=== PATIENT | male | born 1955 | race Asian ===

== ENCOUNTER 2016-09-26 19:25 | Emergency (ER) | payer OTHER ==
[2016-09-26 19:48] VITALS: BP 135/84; PULSE 102; TEMP 98.3; BMI 29.3
--- NOTE | 2016-09-26 19:48 | PDOC ---
History of Present Illness - General Chief Complaint: Injury Stated Complaint: LEFT SHOULDER PAIN Time Seen by Provider: 09/26/16 19:47 History Source: Patient Exam Limitations: No Limitations - History of Present Illness Initial Comments: 09/26/16 20:48 This is a 61-year-old male who works as a concession cashier at a store. Patient said that he slipped and fell on some water that was on the floor and landed on his left shoulder. Patient continued to work for several hours but over the next several hours his shoulder became progressively more painful and uncomfortable. So patient comes in for evaluation. Patient did not hit his head. He did not pass out and denies any other complaints or injuries. PAST MEDICAL HISTORY: no significant history PAST SURGICAL HISTORY: no significant history FAMILY HISTORY: no pertinant history SOCIAL HISTORY: Pt lives with family and is employed. MEDICATIONS: reviewed ALLERGIES: As per nursing notes Review of Systems General: No fevers or chills, no weakness, no weight loss HEENT: No change in vision. No sore throat,. No ear pain CardioVascular: No chest pain or shortness of breath Respiratory:No cough, or wheezing. Gastrointestinal: no nausea, vomitting, diarrhea or constipation, No rectal bleeding Genitourinary: No dysuria, hematuria, or frequency Musculoskeletal: Left shoulder as per history of present illness Neurologic: No headache, vertigo, dizziness or loss of consciousness Psychiatric: nor depression Skin: No rashes or easy bruising Endocrine: no increased thirst or abnormal weight change Allergic: no skin or latex allergy All other systems reviewed and normal GENERAL: The patient is awake, alert, and fully oriented, in no acute distress. HEAD: Normal with no signs of trauma. EYES: Pupils equal, round and reactive to light, extraocular movements intact, sclera anicteric, conjunctiva clear. EXTREMITIES: Left shoulder: There is decreased range of motion of the shoulder secondary to pain and discomfort. There is a small amount of bruising and the swelling over the lateral part of the shoulder. There is no bony tenderness or crepitus. There is no deformity. Neurovascular distal is intact. NEUROLOGICAL: Normal speech, normal gait. PSYCH: Normal mood, normal affect. SKIN: Warm, Dry, normal turgor, no rashes or lesions noted. X-ray no acute fracture or dislocation. Assessment and plan: This is a 61-year-old male with left shoulder pain post fall onto the area. X-rays are negative for any acute pathology. Patient given Toradol here in the emergency room and told to continue to take ibuprofen 600 mg 3 times a day as needed for the pain. Patient also given referral to Dr. Nuñez for follow-up. Past History - Past Medical History Allergies/Adverse Reactions: Allergies Allergy/AdvReac Type Severity Reaction Status Date / Time No Known Allergies Allergy Verified 12/06/12 10:48 Home Medications: Ambulatory Orders Amlodipine Bes/Olmesartan Med [Amlodipine-Olmesartan 5-20 mg] 1 each PO DAILY HTN: Yes - Psycho/Social/Smoking Cessation Hx Anxiety: Yes Suicidal Ideation: No Smoking Status: No Smoking History: Never smoked Have you smoked in the past 12 months: No Number of Cigarettes Smoked Daily: 0 Hx Alcohol Use: No Drug/Substance Use Hx: No Substance Use Type: None Hx Substance Use Treatment: No *Physical Exam - Vital Signs Last Vital Signs Temp Pulse Resp BP Pulse Ox 98.3 F 102 H 16 135/84 98 09/26/16 19:32 09/26/16 19:32 09/26/16 19:32 09/26/16 19:32 09/26/16 19:32 *DC/Admit/Observation/Transfer Diagnosis at time of Disposition: Sprain of left shoulder Qualifiers: Shoulder sprain type: unspecified sprain - Discharge Dispostion Disposition: HOME Condition at time of disposition: Good - Patient Instructions Additional Instructions: Take ibuprofen 3 tablets 3 times a day with food don't take on an empty stomach for the pain. Ice to the area 20 minutes at a time 3-4 times a day for the next 8 hours. Follow-up with Dr. Nuñez if not improved in 3-[address] Nuñez's phone number is [phone] he is an orthopedist. Return to the emergency department immediately with ANY new, persistent or worsening symptoms. Continue any medications as previously prescribed by your physician. You should follow up with your primary doctor as soon as possible regarding today's emergency department visit. . Please make sure your doctor reviews the results of your emergency evaluation. Thank you for coming to the Emergency Department today for your care. It was a pleasure to see you today. Please note that your evaluation is INCOMPLETE until you follow-up with your doctor. - Post Discharge Activity Work/School Note: Back to Work
[2016-09-26] MEDS ORDERED: KETOROLAC TROMETHAMINE 60 MG/2 ML VIAL IM ONE (20:23)
[2016-09-26] MEDS ORDERED: KETOROLAC TROMETHAMINE 60 MG/2 ML VIAL ONE (20:24)
== END 2016-09-26 21:00 | disposition home or self-care (01) ==
LOC: FER 19:25
PROC: 3E0233Z Introduction of Anti-inflammatory into Muscle, Percutaneous Approach (ICD-10-PCS; principal; 2016-09-26)
DX: S43.402A Unspecified sprain of left shoulder joint, initial encounter (principal); W01.0XXA Fall on same level from slipping, tripping and stumbling without subsequent striking against object, initial encounter; Y93.89 Activity, other specified; Y92.89 Other specified places as the place of occurrence of the external cause; Y99.0 Civilian activity done for income or pay; I10 Essential (primary) hypertension
CPT/HCPCS: 73030-TC-LT; 99282-25

== ENCOUNTER 2016-09-28 11:33 | Emergency (ER) | payer OTHER ==
[2016-09-28 11:41] VITALS: BP 150/86; PULSE 95; TEMP 98; BMI 29.3
[2016-09-28] MEDS ORDERED: KETOROLAC TROMETHAMINE 30 MG/1 ML VIAL IM ONE (12:03)
[2016-09-28] MEDS ORDERED: KETOROLAC TROMETHAMINE 30 MG/1 ML VIAL ONE (12:08)
--- NOTE | 2016-09-28 12:10 | PDOC ---
*Physical Exam - Vital Signs Last Vital Signs Temp Pulse Resp BP Pulse Ox 98.0 F 95 H 18 150/86 99 09/28/16 11:36 09/28/16 11:36 09/28/16 11:36 09/28/16 11:36 09/28/16 11:36 - Physical Exam Comments: 09/28/16 12:05 seen 2 days ago At Hospital post fall onto left shoulder at work last week with continued painand difficulty moving shoulder General Appearance: Yes: Appropriately Dressed Neck: positive: Supple. negative: Tender, Rigid, Lymphadenopathy (R), Lymphadenopathy (L) Respiratory/Chest: positive: Lungs Clear Progress Note - Progress Note Progress Note: pt has continued limited ROM of shoulder; FROM neck, elbow and wrist; N/V intact Medical Decision Making - Medical Decision Making 09/28/16 12:08 pt did not note orthopedist referral on previous [facility] visit disch; pt will call on Friday for appt with Dr Nuñez; sling given for occasioanl use; Toradol given in ED now *DC/Admit/Observation/Transfer Diagnosis at time of Disposition: Sprain of left shoulder Qualifiers: Encounter type: sequela Shoulder sprain type: unspecified sprain Qualified Code (s): S43.402S - Unspecified sprain of left shoulder joint, sequela - Discharge Dispostion Disposition: HOME Condition at time of disposition: Stable Admit: No - Referrals Referrals: Sylvester Mooney MD [Primary Care Provider] - Oren Nuñez MD [Staff Physician] - - Patient Instructions Additional Instructions: Please see Dr Nuñez in 2-3 days in office; use sling occasionally as needed - Post Discharge Activity Work/School Note: Back to Work
== END 2016-09-28 12:23 | disposition home or self-care (01) ==
LOC: JER 11:33
PROC: 3E0233Z Introduction of Anti-inflammatory into Muscle, Percutaneous Approach (ICD-10-PCS; principal; 2016-09-28)
DX: S43.402D Unspecified sprain of left shoulder joint, subsequent encounter (principal); W19.XXXD Unspecified fall, subsequent encounter; Y92.512 Supermarket, store or market as the place of occurrence of the external cause; Y99.0 Civilian activity done for income or pay
CPT/HCPCS: 99281-25

== ENCOUNTER 2016-10-30 09:37 | Day surgery (SDC) | payer OTHER ==
[2016-10-28 12:31] VITALS: BMI 29.7
[2016-10-30] MEDS ORDERED: MIDAZOLAM HCL 2 MG/2 ML SINGLE DOSE VIAL ONE (10:42)
[2016-10-30] MEDS ORDERED: ROPIVACAINE HCL 0.5% 30ML VIAL ONE (10:43)
[2016-10-30] MEDS ORDERED: DEXAMETHASONE SOD PHOSPHATE/PF 10 MG/ML SDV ONE (10:43)
[2016-10-30] MEDS ORDERED: PROPOFOL 20 ML ONE ×3 (13:35)
[2016-10-30] MEDS ORDERED: EPINEPHrine 1:1,000 1 MG/1 ML - 30ML VIAL (INJECTION) ONE (13:59)
[2016-10-30] MEDS ORDERED: LACTATED RINGERS SOLUTION 1,000 ML IV SCH (14:45)
[2016-10-30] MEDS ORDERED: ONDANSETRON 4 MG/2 ML VIAL IVPUSH PRN (14:54)
[2016-10-30] MEDS ORDERED: oxyCODONE HCL 5 MG TABLET PO PRN ×2 (14:54)
[2016-10-30] MEDS ORDERED: ONDANSETRON 4 MG/2 ML VIAL ONE (15:00)
[2016-10-30] MEDS ORDERED: ONDANSETRON 4 MG/2 ML VIAL IVPUSH ONE (15:01)
[2016-10-30 16:01] VITALS: PULSE 80; TEMP 98.2
[2016-10-30 17:43] VITALS: BP 122/65
--- NOTE | 2016-10-31 09:43 | OP ---
DATE OF OPERATION: 10/30/2016 PREOPERATIVE DIAGNOSIS: Left shoulder full-thickness rotator cuff tear. POSTOPERATIVE DIAGNOSES: 1. Left shoulder full-thickness anterior supraspinatus rotator cuff tear. 2. Left shoulder superior labral tear and proximal biceps tear. 3. Left shoulder glenohumeral joint sprain and synovitis. 4. Left shoulder subacromial impingement syndrome and severe bursitis. OPERATIVE PROCEDURES: 1. Left shoulder arthroscopic rotator cuff repair. 2. Left shoulder proximal biceps tenotomy. 3. Left shoulder glenohumeral joint extensive debridement. 4. Left shoulder arthroscopic subacromial decompression, bursectomy, and anterior-inferior acromioplasty. SURGEON: Chi Choi MD SADDLE MAKER: RED Edwards ANESTHESIA: Regional. COMPLICATIONS: None. ESTIMATED BLOOD LOSS: Minimal. INDICATIONS FOR PROCEDURE: The patient is a 61-year-old male with injuries to the left shoulder which failed to get better with early conservative treatment. His MRI showed the above findings. He was indicated for operative treatment. Risks, benefits and alternatives were discussed with the patient at length and proper informed consent was obtained. PROCEDURE: After proper identification of the patient and correct operative site, the patient was brought to the operating room and placed supine on the operating room table. All bony prominences were well padded. Regional anesthesia with sedation was given. Intravenous antibiotics were given. A timeout procedure was performed. The patient had been placed in the beach-chair position with all points of contact well padded and in-line cervical positioning maintained throughout the procedure. Fluoroscopy was then performed of the left shoulder. This was performed through posterolateral and anterior portals. All portals were made with skin incision only and blunt dissection down to the joint capsule. Glenohumeral joint was observed first from the posterior portal and found to have very mild arthrosis. Severe fraying of the superior-posterior and superior-anterior labrum was noted with positive peel test of the superior labrum. This was debrided and significant tearing was found to go into the root of the biceps tendon. Therefore, a biceps tenotomy was performed at its root and allowed to retract into the arm. Significant synovitis of the entire glenohumeral joint was noted and this was debrided extensively with a mechanical shaver and ArthroWand. Subscapularis and infraspinatus were found to be intact. The supraspinatus tendon was found to have a full-thickness tear in its anterior portion, measuring anterior-posterior distance of approximately 1 cm, and was retracted approximately 1 cm. This was easily mobilized and debrided and the greater tuberosity was debrided for repair. Arthroscope was then introduced into the subacromial space where a severe bursitis was noted and this was debrided extensively with a mechanical shaver and ArthroWand. A small anterior-superior subacromial spur was noted and an anterior-inferior acromioplasty was performed. Mild fraying of the entire supraspinatus was noted and this was debrided with a mechanical shaver. The rotator cuff tear was then again identified and again easily mobilized through the greater tuberosity and repaired in a double-row equivalent fashion using an Arthrex SpeedBridge technique using 2 medial SwiveLock anchors combined with FiberTape passed through the rotator cuff and humphrey-crossed with 4 total sutures and secured laterally with 2 further SwiveLock anchors. This provided a secure, stable, tension-free repair of the rotator cuff in a double-row equivalent fashion. The shoulder was taken through a range of motion and no restrictions in range of motion were found and no tension was placed on the repair during motion. The wounds were irrigated with saline and repaired with 5-0 nylon suture. Sterile dressings were applied. Sling and ice machine were placed. Los Lawton, the fire assistant, was integral throughout this procedure. This procedure could not have been performed without a skilled operative arthroscopically-confident fire assistant. He was critical during portions of the case where rotator cuff repair was being performed in order to hold the arthroscope and position the arthroscope appropriately while the repair was performed. This procedure could not have been performed without a surgical orderly such as RED Lawton and could not have been performed with the assistance of an OR nurse or an OR office machine technician. Jonelle [id number]
== END 2016-10-30 17:00 | disposition home or self-care (01) ==
LOC: FASU 09:37
PROVIDERS: ATTEND Orthopaedic Surgery Hand Surgery
PROC: 0LB24ZZ Excision of Left Shoulder Tendon, Percutaneous Endoscopic Approach (ICD-10-PCS; principal; 2016-10-30 13:12)
PROC: 0RNK4ZZ Release Left Shoulder Joint, Percutaneous Endoscopic Approach (ICD-10-PCS; 2016-10-30 13:12)
PROC: 0LN24ZZ Release Left Shoulder Tendon, Percutaneous Endoscopic Approach (ICD-10-PCS; 2016-10-30 13:12)
DX: M75.122 Complete rotator cuff tear or rupture of left shoulder, not specified as traumatic (principal); S46.212A Strain of muscle, fascia and tendon of other parts of biceps, left arm, initial encounter; S46.812A Strain of other muscles, fascia and tendons at shoulder and upper arm level, left arm, initial encounter; M65.812 Other synovitis and tenosynovitis, left shoulder; M75.42 Impingement syndrome of left shoulder; M75.52 Bursitis of left shoulder; X58.XXXA Exposure to other specified factors, initial encounter; Y93.9 Activity, unspecified; Y92.9 Unspecified place or not applicable
CPT/HCPCS: 94760

== ENCOUNTER 2017-10-04 14:33 | Emergency (ER) | payer BC, OTHER ==
[2017-10-04 14:40] VITALS: TEMP 97.7; BMI 29.9
[2017-10-04] MEDS ORDERED: morphine CARPU-JECT 4 MG/1 ML DISP.SYRIN IVPUSH ONE (15:22)
--- NOTE | 2017-10-04 15:22 | PDOC ---
History of Present Illness - General Chief Complaint: Pain, Acute Stated Complaint: RT LQ PAIN Time Seen by Provider: 10/04/17 14:53 History Source: Patient Exam Limitations: No Limitations - History of Present Illness Initial Comments: 10/04/17 15:10 The patient is a 62M with a PMH of HTN who presents to the ER with abdominal pain. The patient states that his abdominal pain started last night and has been constant, never totally going away, worsening and becoming less painful at times, radiates inferiorly and towards his back, without any exacerbating or alleviating factors. He denies any hx of kidney stones and states he's never had pain like this before. He was sent by his PCP's office for RLQ and fever workup. He denies any CP, SOB, nausea, vomiting, diarrhea, constipation. He also denies hematuria, hematochezia, and black/tarry stools. Past History - Past Medical History Allergies/Adverse Reactions: Allergies Allergy/AdvReac Type Severity Reaction Status Date / Time No Known Drug Allergies Allergy Verified 10/04/17 14:36 Home Medications: Ambulatory Orders Naproxen [Naprosyn -] 500 mg PO BID PRN 10/30/16 Amlodipine Bes/Olmesartan Med [Louie 5-20 mg Tablet] 1 each PO DAILY 10/04/17 Naproxen [Naprosyn -] 500 mg PO BID #14 tablet 10/04/17 Anemia: No Asthma: No Cancer: No Cardiac Disorders: No CVA: No COPD: No CHF: No Dementia: No Diabetes: No GI Disorders: No Disorders: No HTN: Yes (2011) Hypercholesterolemia: No Liver Disease: No Seizures: No Thyroid Disease: No - Immunization History Immunization Up to Date: Yes - Suicide/Smoking/Psychosocial Hx Smoking Status: No Smoking History: Never smoked Have you smoked in the past 12 months: No Number of Cigarettes Smoked Daily: 0 Hx Alcohol Use: No Drug/Substance Use Hx: No Substance Use Type: None Hx Substance Use Treatment: No Review of Systems - Review of Systems Able to Perform ROS?: Yes Comments:: 10/04/17 15:30 GENERAL/CONSTITUTIONAL: No fever or chills. No weakness. HEAD, EYES, EARS, NOSE AND THROAT: No change in vision. No ear pain or discharge. No sore throat. CARDIOVASCULAR: No chest pain, palpitations, or lightheadedness. RESPIRATORY: No cough, wheezing, shortness of breath, or hemoptysis. GASTROINTESTINAL: Positive for abdominal pain. No nausea, vomiting, diarrhea, or constipation. GENITOURINARY: No dysuria, frequency, hematuria, or change in urination. MUSCULOSKELETAL: No joint or muscle swelling or pain. No neck or back pain. SKIN: No rash or lesions. NEUROLOGIC: No headache, numbness, tingling, weakness, loss of consciousness, or change in strength/sensation. ENDOCRINE: No increased thirst. No abnormal weight change. HEMATOLOGIC/LYMPHATIC: No anemia, easy bleeding, or history of blood clots. ALLERGIC/IMMUNOLOGIC: No hives or skin allergy. Is the patient limited Bulgarian proficient: No *Physical Exam - Vital Signs Last Vital Signs Temp Pulse Resp BP Pulse Ox 97.7 F 111 H 20 136/79 98 10/04/17 14:36 10/04/17 14:36 10/04/17 14:36 10/04/17 14:36 10/04/17 14:36 - Physical Exam Comments: 10/04/17 15:31 GENERAL: Well developed, well nourished. Awake and alert. No acute distress. HEENT: Normocephalic, atraumatic. Hearing grossly normal. Moist mucous membranes. PERRLA, EOMI. No conjunctival pallor. Sclera are non-icteric. NECK: Supple. Full ROM. No JVD. CARDIOVASCULAR: Regular rate and rhythm. No murmurs, rubs, or gallops. PULMONARY: No evidence of respiratory distress. Lungs clear to auscultation bilaterally. No wheezing, rales or rhonchi. ABDOMINAL: TTP over RLQ with guarding. GENITOURINARY: R CVA tenderness. MUSCULOSKELETAL: Normal range of motion at all joints. No bony deformities or tenderness. EXTREMITIES: No cyanosis. No clubbing. No edema. No calf tenderness. SKIN: Warm and dry. Normal capillary refill. No rashes. No jaundice. NEUROLOGICAL: Alert, awake, appropriate. Cranial nerves 2-12 intact. Gait is normal without ataxia. PSYCHIATRIC: Cooperative. Good eye contact. Appropriate mood and affect. ED Treatment Course - LABORATORY CBC & Chemistry Diagram: 10/04/17 15:25 10/04/17 15:25 - RADIOLOGY Radiology Studies Ordered: Category Date Time Status ABDOMEN & PELVIS CT WITH CONTR [CT] Stat CT Scan 10/04/17 15:07 Ordered Medical Decision Making - Medical Decision Making 10/04/17 15:31 The patient is a 62M with a PMH of HTN who presents with RLQ pain with guarding. He does not have a fever but is tender to palpation over his RLQ and has mild CVA tenderness. Pending labs/imaging. Ddx: appendicitis, pyelo, UTI, nephrolithiasis. 10/04/17 18:40 Labs WNL. CTAP negative for appendicitis. Hiatal hernia noted. 10/04/17 19:06 Labs WNL, no fever, unlikely appendicitis. Will d/c home with strict f/u instructions. *DC/Admit/Observation/Transfer Diagnosis at time of Disposition: Abdominal pain Qualifiers: Abdominal location: right lower quadrant Qualified Code(s): R10.31 - Right lower quadrant pain - Discharge Dispostion Disposition: HOME Condition at time of disposition: Stable Admit: No - Prescriptions Prescriptions: Naproxen [Naprosyn -] 500 mg PO BID #14 tablet - Referrals Referrals: Sylvester Mooney MD [Primary Care Provider] - - Patient Instructions Printed Discharge Instructions: DI for Abdominal Pain-Adult Additional Instructions: Please return to the ER if symptoms persist, worsen, or new symptoms arise. Please follow up with your primary care physician in 2-3 days. Please return to the ER if you have any signs or symptoms of chest pain, shortness of breath, uncontrollable fever, chills, nausea, vomiting, numbness, tingling, or weakness in any part of your body, changes in vision, or slurred speech. Please take your medications as prescribed. - Post Discharge Activity
[2017-10-04] MEDS ORDERED: MORPHINE SULFATE 10 MG/1 ML *VIAL ONE (15:37)
[2017-10-04 15:39] LABS: BASO % 0.9 % (0-2.0); EOS % 2.9 % (0-4.5); HEMATOCRIT 46.3 % (35.4-49); HEMOGLOBIN 15.4 GM/dL (11.7-16.9); LYMPH % 11.6 % (8-40); MCH 28.5 pg (25.7-33.7); MCHC 33.3 g/dl (32.0-35.9); MEAN CELL VOLUME 85.7 fl (80-96); MEAN PLT VOLUME 7.8 fl (7.5-11.1); MONO % 5.1 % (3.8-10.2); NEUT % 79.5 % (42.8-82.8); PLATELET COUNT 281 K/MM3 (134-434); WHITE BLOOD COUNT 8.1 K/mm3 (4.0-10.0)
--- NOTE | 2017-10-04 15:43 | PDOC ---
Attending Attestation - Resident Resident Name: Benjamin Casas - ED Attending Attestation I have performed the following: I have examined & evaluated the patient, The case was reviewed & discussed with the resident, I agree w/resident's findings & plan, Exceptions are as noted - HPI HPI: 10/04/17 15:46 62 year old M c/ pmh HTN p/w RLQ pain x 2 weeks. Reported pain has worsened and is constant. Occasional fevers. No nausea or vomiting at this time. Denies testicular pain or dysuria. Pt seen Dr. Mooney today and sent pt to ED. - Physicial Exam PE: 10/04/17 15:49 GENERAL: Awake, alert, and fully oriented, in no acute distress. HEAD: No signs of trauma EYES: PERRLA, EOMI, sclera anicteric, conjunctiva clear ENT: Auricles normal inspection, hearing grossly normal NECK: Normal ROM, supple LUNGS: Breath sounds equal, clear to auscultation bilaterally. No wheezes, and no crackles HEART: Regular rate and rhythm, normal S1 and S2, no murmurs, rubs or gallops ABDOMEN: Soft. TTP RLQ. no rebound, no guarding. EXTREMITIES: Normal range of motion, no edema. No clubbing or cyanosis. No cords, erythema, or tenderness NEUROLOGICAL: Cranial nerves II through XII grossly intact. Normal speech, normal gait SKIN: Warm, Dry, normal turgor, no rashes or lesions noted. - Medical Decision Making 10/04/17 15:49 Vital Signs Temp Pulse Resp BP Pulse Ox 97.7 F 111 H 20 136/79 98 10/04/17 14:36 10/04/17 14:36 10/04/17 14:36 10/04/17 14:36 10/04/17 14:36 Differential includes appendicitis, colitis, diverticulitis, cystitis. I agree with resident, labs, CT scan of abdomen and pelvis, UA.
[2017-10-04 15:51] LABS: INR 1.05 (0.82-1.09); PROTHROMBIN TIME (PATIENT) 11.9 SEC (9.98-11.88)
[2017-10-04 16:07] LABS: ALBUMIN 3.9 g/dl (3.4-5.0); ANION GAP 6 (8-16); BILIRUBIN,TOTAL 0.4 mg/dL (0.2-1.0); BLOOD UREA NITROGEN 22 mg/dL (7-18); CALCIUM 9.2 mg/dL (8.5-10.1); CHLORIDE 102 mmol/L (98-107); CO2 31 mmol/L (21-32); GLUCOSE,RANDOM 182 mg/dL (74-106); LIPASE 110 U/L (73-393); SGOT/AST 16 U/L (15-37); SGPT/ALT 19 U/L (12-78); SODIUM 139 mmol/L (136-145); TOT PROT 7.8 g/dl (6.4-8.2)
[2017-10-04 16:08] LABS: ALK PHOS 70 U/L (45-117)
[2017-10-04 17:11] LABS: URINE APPEARANCE CLEAR; URINE BILIRUBIN NEGATIVE (NEGATIVE); URINE BLOOD NEGATIVE (NEGATIVE); URINE COLOR STRAW; URINE GLUCOSE (UA) NEGATIVE (NEGATIVE); URINE KETONE NEGATIVE (NEGATIVE); URINE LEUK ESTERASE NEGATIVE (NEGATIVE); URINE NITRITE NEGATIVE (NEGATIVE); URINE PROTEIN NEGATIVE (NEGATIVE); URINE UROBILINOGEN NEGATIVE mg/dL (0.2-1.0)
[2017-10-04 19:13] VITALS: BP 143/78; PULSE 77
== END 2017-10-04 19:12 | disposition home or self-care (01) ==
LOC: JER 14:33
PROC: 3E033NZ Introduction of Analgesics, Hypnotics, Sedatives into Peripheral Vein, Percutaneous Approach (ICD-10-PCS; principal; 2017-10-04)
DX: R10.31 Right lower quadrant pain (principal); I10 Essential (primary) hypertension
CPT/HCPCS: 36415; 74177-TC; 80053; 81003; 83690; 85025; 85610; 86850; 86900; 86901; 99283-25

== ENCOUNTER 2021-10-01 20:43 | Emergency (ER) | payer BC, OTHER ==
[2021-10-01 20:50] VITALS: BP 154/81; PULSE 100; TEMP 98.5; BMI 29.1
== END 2021-10-01 21:12 | disposition home or self-care (01) ==
LOC: FER 20:43
DX: S61.216A Laceration without foreign body of right little finger without damage to nail, initial encounter (principal); W26.8XXA Contact with other sharp object(s), not elsewhere classified, initial encounter
CPT/HCPCS: 99281-25

== ENCOUNTER 2023-05-06 08:39 | Emergency (ER) | payer BC, OTHER ==
[2023-05-06 09:03] VITALS: TEMP 99; BMI 29.9
[2023-05-06] MEDS ORDERED: SODIUM CHLORIDE 0.9% 500 ML INFUS.BAG IV ONE (09:32)
[2023-05-06] MEDS ORDERED: DIPHTH,PERTUSS(ACELL),TET 0.5 ML DISP.SYRIN IM ONE ×2 (09:34→09:44)
[2023-05-06] MEDS ORDERED: ACETAMINOPHEN 325 MG TABLET (FP) PO ONE (09:58)
[2023-05-06] MEDS ORDERED: ACETAMINOPHEN 1000 MG/100 ML BAG IVPB ONE (10:00)
[2023-05-06] MEDS ORDERED: ACETAMINOPHEN INJECTION 100 ML IVPB ONE (10:01)
[2023-05-06 10:23] LABS: HEMATOCRIT 48.6 % (35.4-49); HEMOGLOBIN 16.1 G/dL (11.7-16.9); MCH 28.9 pg (25.7-33.7); MCHC 33.2 g/dl (32.0-35.9); MEAN CELL VOLUME 86.9 fl (80-96); MEAN PLT VOLUME 7.9 fl (7.5-11.1); PLATELET COUNT 279.6 10^3/uL (134-434); RBC 5.59 10^6/uL (4.00-5.60); RDW 14.3 % (11.9-15.9); WHITE BLOOD COUNT 6.7 10^3/uL (4.0-10.8)
[2023-05-06 10:33] LABS: ALBUMIN 4.6 g/dl (3.4-5.0); BILIRUBIN,TOTAL 0.5 mg/dl (0.2-1); CALCIUM 9.5 mg/dl (8.5-10.1); CREATININE 0.8 mg/dl (0.6-1.3); POTASSIUM 4.6 mmol/L (3.5-5.1); SGOT/AST 17.5 U/L (15-37); SGPT/ALT 23.4 U/L (7-52); TOT PROT 7.4 g/dl (6.4-8.2)
[2023-05-06 12:08] VITALS: BP 140/82; PULSE 80; RESP 15
== END 2023-05-06 13:43 | disposition left against medical advice (07) ==
LOC: FER 08:39
PROC: 3E033NZ Introduction of Analgesics, Hypnotics, Sedatives into Peripheral Vein, Percutaneous Approach (ICD-10-PCS; principal; 2023-05-06)
PROC: 3E0234Z Introduction of Serum, Toxoid and Vaccine into Muscle, Percutaneous Approach (ICD-10-PCS; 2023-05-06)
DX: R55 Syncope and collapse (principal); R42 Dizziness and giddiness; S01.81XA Laceration without foreign body of other part of head, initial encounter; Z20.822 Contact with and (suspected) exposure to COVID-19; W19.XXXA Unspecified fall, initial encounter
CPT/HCPCS: 0241U-QW; 36415; 70450-TC; 70486-TC; 71045-TC-FY; 72125-TC; 73130-TC-RT-FY; 73562-TC-LT-FY; 80053; 81003; 83735; 84484; 85027; 87086; 90715; 93005; 99285-25